=== PATIENT | female | born 1990 | race Caucasian/White ===

== ENCOUNTER 2016-12-26 11:57 | Emergency (ER) | payer OTHER | END 2016-12-26 12:40 | disposition home or self-care (01) | LOC: ER1 11:57 | DX: S16.1XXA Strain of muscle, fascia and tendon at neck level, initial encounter (principal); Z88.0 Allergy status to penicillin; X58.XXXA Exposure to other specified factors, initial encounter; Y92.009 Unspecified place in unspecified non-institutional (private) residence as the place of occurrence of the external cause | CPT/HCPCS: 99283 ==

== ENCOUNTER 2021-08-08 16:36 | Emergency (ER) | payer OTHER ==
[~2021-08-08 16:36] MED LIST: BACTROBAN OINT22 GM EXT; KEFLEX CAP 500500 MG PO
[2021-08-08 18:01] LABS: HEMOGLOBIN 13.7 gm/dl (12.3-15.3); RED BLOOD COUNT 4.58 M/UL (4.00-5.10); WHITE BLOOD COUNT 13.4 K/UL (4.5-11.0)
[2021-08-08 18:43] LABS: BUN/CREATININE RATIO 26 (0-10)
[2021-08-08] MEDS ORDERED: IBUPROFEN600 MG PO (20:05)
[2021-08-08] MEDS ORDERED: ZOFRAN ODT 4 MG4 MG GT (20:05)
[2021-08-08] MEDS ORDERED: FLONASE 0.05% N16 GM (20:05)
== END 2021-08-08 20:35 | disposition home or self-care (01) ==
LOC: ER1 16:36
PROVIDERS: Physician Assistant Medical
DX: B34.9 Viral infection, unspecified (principal); Z88.0 Allergy status to penicillin; Z20.822 Contact with and (suspected) exposure to COVID-19
CPT/HCPCS: 0240U; 71045; 80053; 81001; 84703; 85025; 96374; 96375; 99283; J1885